=== PATIENT | female | born 1985 | race Caucasian/White ===

== ENCOUNTER 2017-09-20 22:48 | Emergency (ER) | payer BC ==
[2017-09-20 23:03] VITALS: RESP 18
[2017-09-20] MEDS ORDERED: Sodium Chloride 0.9% 500 ML IV ONE (23:27)
[2017-09-20 23:50] LABS: BASO # 0.1 K/uL (0.0-0.2); BASO % 0.5 % (0.0-2.0); EOS % 0.3 % (0.0-4.0); HEMOGLOBIN 12.8 g/dL (11.0-16.0); LYMPH # 1.5 K/uL (1.0-4.3); LYMPH % 13.4 % (20.0-40.0); MEAN CELL VOLUME 83.4 fL (81.0-99.0); MEAN CORPUSCULAR HEMOGLOBIN 28.4 pg (27.0-31.0); MEAN PLATELET VOLUME 10.2 fL (7.2-11.7); MONO # 0.7 K/uL (0.0-0.8); MONO % 6.7 % (0.0-10.0); NEUT # 8.8 K/uL (1.8-7.0); NEUT % 79.1 % (50.0-75.0); RBC 4.5 Mil/uL (3.80-5.20); RED CELL DISTRIBUTION WIDTH 13.6 % (11.5-14.5); WHITE BLOOD COUNT 11.1 K/uL (4.8-10.8)
--- NOTE | 2017-09-20 23:50 | C.PDOC ---
History Of Present Illness 32 year old female presents to the ED for evaluation of dry cough, sore throat, subjective fever, generalized body aches for the past few days. Patient reports taking Teraflu and Mucinex with no relief to symptoms, today she reports increased throat pain along with occasional blood stained sputum and decreased appetite which prompted todays visit for evaluation. Patient denies night sweats , weight loss, nausea, vomiting, abdominal pain, diarrhea, recent travel, sick contacts. Time Seen by Provider: 09/20/17 23:12 Chief Complaint (Nursing): Flu-like Symptoms History Per: Patient History/Exam Limitations: no limitations Onset/Duration Of Symptoms: Days Current Symptoms Are (Timing): Still Present Location Of Pain: Throat, Diffuse Myalgias Sick Contacts (Context): None Associated Symptoms: Fever, Chills, Sore Throat, Cough, Myalgias. denies: Sputum, Vomiting, Diarrhea Ear Symptoms: Bilateral: None Severity: None Recent travel outside of the [place]: No Additional History Per: Patient Past Medical History Reviewed: Historical Data, Nursing Documentation, Vital Signs Vital Signs: Last Vital Signs Temp 99.9 F H 09/20/17 22:57 Pulse 120 H 09/20/17 22:57 Resp 18 09/20/17 22:57 BP 110/72 09/20/17 22:57 Pulse Ox 100 09/21/17 01:38 - Medical History PMH: No Chronic Diseases Surgical History: No Surg Hx Family History: States: Unknown Family Hx - Social History Hx Alcohol Use: No Hx Substance Use: No - Immunization History Hx Tetanus Toxoid Vaccination: No Hx Influenza Vaccination: No Hx Pneumococcal Vaccination: No Review Of Systems Constitutional: Negative for: Fever, Chills Cardiovascular: Negative for: Chest Pain, Palpitations Respiratory: Positive for: Cough. Negative for: Shortness of Breath, Hemoptysis , Pleuritic Pain, Sputum, Wheezing Gastrointestinal: Negative for: Nausea, Vomiting, Abdominal Pain Skin: Negative for: Rash Neurological: Negative for: Weakness, Numbness, Headache Physical Exam - Physical Exam Appears: Non-toxic, No Acute Distress Skin: Normal Color, Warm, Dry Head: Atraumatic, Normacephalic Eye(s): bilateral: Normal Inspection, PERRL, EOMI Ear(s): Bilateral: Normal Nose: No Discharge, No Deformity Oral Mucosa: Moist Throat: Normal, No Erythema, No Exudate, No Drooling, No Mass Neck: Normal ROM, Supple Lymphatic: No Adenopathy Chest: Symmetrical Cardiovascular: Rhythm Regular (with tachycardia), No Murmur Respiratory: Normal Breath Sounds, No Rales, No Rhonchi, No Wheezing Gastrointestinal/Abdominal: Soft, No Tenderness, No Guarding, No Rebound Back: No CVA Tenderness Extremity: Normal ROM, No Pedal Edema, No Calf Tenderness, No Deformity, No Swelling Neurological/Psych: Oriented x3, Normal Motor, Normal Sensation Gait: Steady ED Course And Treatment - Laboratory Results Result Diagrams: 09/20/17 23:46 09/20/17 23:46 Lab Interpretation: No Acute Changes Urine POC: Negative O2 Sat by Pulse Oximetry: 100 (On RA) Pulse Ox Interpretation: Normal Progress Note: Plan: -Blood work. -IV fluids. -Influenza A B test. -Rapid strep test. Pt is sleeping comfortably on stretcher, in no distress. All labs have been reviewed and d/w pt who will follow up outpt. Return precautions also discussed and pt does understand and agrees with plan. -UA Reevaluation Time: 01:40 Reassessment Condition: Improved Disposition - Disposition Referrals: 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 - Scribe Statement The provider has reviewed the documentation as recorded by the Scribe Tejinder Vieira All medical record entries made by the Scribe were at my direction and personally dictated by me. I have reviewed the chart and agree that the record accurately reflects my personal performance of the history, physical exam, medical decision making, and the department course for this patient. I have also personally directed, reviewed, and agree with the discharge instructions and disposition.
[2017-09-20 23:55] LABS: SQUAMOUS EPITHIAL 4 /hpf (0-5); URINE BACTERIA RARE (<OCC); URINE BILIRUBIN NEGATIVE (NEGATIVE); URINE BLOOD NEGATIVE (NEGATIVE); URINE CLARITY Clear (Clear); URINE COLOR Yellow (YELLOW); URINE GLUCOSE (UA) NORMAL (Normal); URINE NITRATE NEGATIVE (NEGATIVE); URINE PROTEIN NEGATIVE (NEGATIVE); URINE UROBILINOGEN NORMAL mg/dL (0.2-1.0)
[2017-09-20 23:56] LABS: HCG,QUALITATIVE URINE NEGATIVE (NEGATIVE)
[2017-09-20 23:57] LABS: URINE LEUKOCYTE ESTERASE NEGATIVE Leu/uL (Negative)
[2017-09-21 00:02] LABS: ALB/GLOB RATIO 1.1 (1.0-2.1); ALBUMIN 4.3 g/dL (3.5-5.0); ALT/SGPT 36 U/L (9-52); AST/SGOT 22 U/L (14-36); BLOOD UREA NITROGEN 7 mg/dL (7-17); CALCIUM 8.7 mg/dl (8.6-10.4); GFR AFRICAN-AMERICAN > 60; GFR NON-AFRICAN AMERICAN > 60
[2017-09-21 01:08] LABS: INFLUENZA A B NEGATIVE FOR FLU A/B (NEGATIVE)
[2017-09-21 01:47] VITALS: BP 100/64; PULSE 90; TEMP 100.1; O2SAT 95
== END 2017-09-21 02:00 | disposition home or self-care (01) ==
LOC: C.ER 22:48
DX: J06.9 Acute upper respiratory infection, unspecified (principal)
CPT/HCPCS: 80053; 81001; 84703; 85025; 87070; 87430; 87804; 87807; 96360; 99283; J7040